=== PATIENT | male | born 1990 | race Caucasian/White ===

== ENCOUNTER 2022-04-19 06:01 | Emergency (ER) | payer SELFPAY | END 2022-04-19 07:35 | disposition home or self-care (01) | LOC: MW.ED 06:01 | DX: F10.10 Alcohol abuse, uncomplicated (principal) | CPT/HCPCS: 99283 ==

== ENCOUNTER 2022-04-19 14:22 | Inpatient (IN) | payer SELFPAY ==
[2022-04-19] MEDS ORDERED: Sodium Chloride 0.9% 1,000 ML IV ONE (16:04)
[2022-04-19] MEDS ORDERED: Thiamine 200 MG/2 ML MDV IVPUSH ONE (16:04)
[2022-04-19] MEDS ORDERED: LORazepam 2 MG/ML SDV IVPUSH ONE ×4 (16:04→21:19)
[2022-04-19] MEDS ORDERED: Folic Acid 1 MG/0.2 ML UD Syringe IV STA (16:04)
[2022-04-19] MEDS ORDERED: LORazepam 2 MG/ML SDV IM ONE (17:19)
[2022-04-19] MEDS ORDERED: Haloperidol Lactate 5 MG/ML SDV IM ONE (17:19)
[2022-04-19] MEDS ORDERED: diphenhydrAMINE 50 MG/ML SDV IM ONE (17:19)
[2022-04-19] MEDS ORDERED: Thiamine 200 MG/2 ML MDV ONE (19:42)
[2022-04-19] MEDS ORDERED: Folic Acid 1 MG/0.2 ML UD Syringe ONE (19:43)
[2022-04-19 19:48] LABS: ACETAMINOPHEN <2.0 ug/mL; BLOOD UREA NITROGEN,BUN 6 mg/dL (7.0-18.0); CARBON DIOXIDE,CO2 27.1 mmol/L (21.0-32.0); CHLORIDE,CL 99 mmol/L (98-107); ESTIMATED GFR 91 mL/min (>60); GLUCOSE RANDOM 115 mg/dL (74-106); POTASSIUM,K 3.3 mmol/L (3.5-5.1); SODIUM,NA 137 mmol/L (136-148)
[2022-04-19] MEDS ORDERED: Magnesium Sulfate/Water 2 GM in Premix Bag 1 BAG IV ONE (20:54)
[2022-04-19] MEDS ORDERED: Ondansetron 4 MG/2 ML SDV ONE (21:20)
[2022-04-19] MEDS: Sodium Chloride 0.9% 1,000 ML IV ONE ×2 (21:35→21:59)
[2022-04-19] MEDS ORDERED: LORazepam 2 MG/ML SDV IVPUSH PRN (22:31)
[2022-04-19] MEDS: Sodium Chloride 0.9% 1,000 ML IV SCH (22:35)
[2022-04-20] MEDS: Sodium Chloride 0.9% 1,000 ML IV SCH ×3 (06:35→23:50)
[2022-04-20 06:41] LABS: CARBON DIOXIDE,CO2 25.9 mmol/L (21.0-32.0); POTASSIUM,K 3.2 mmol/L (3.5-5.1)
[2022-04-20] MEDS ORDERED: Potassium Chloride 20 MEQ Tab.ER PO ONE (07:09)
[2022-04-20] MEDS ORDERED: Ondansetron 4 MG/2 ML SDV IVPUSH PRN (08:05)
[2022-04-20] MEDS: Potassium Chloride 100 ML IV SCH ×2 (08:06→10:20)
[2022-04-20] MEDS: Thiamine 200 MG/2 ML MDV IVPUSH SCH (08:06)
[2022-04-20] MEDS: Folic Acid 1 MG/0.2 ML UD Syringe SUBCUT SCH (08:06)
[2022-04-20] MEDS ORDERED: Pantoprazole 40 MG in Sodium Chloride 0.9% 10 ML IVPUSH ONE (10:05)
[2022-04-20] MEDS ORDERED: Nicotine 14 MG/24 Hr Patch TRDERM ONE (19:39)
[2022-04-21 06:52] LABS: CARBON DIOXIDE,CO2 26.1 mmol/L (21.0-32.0); POTASSIUM,K 3.4 mmol/L (3.5-5.1)
[2022-04-21] MEDS: Sodium Chloride 0.9% 1,000 ML IV SCH (07:38)
[2022-04-21] MEDS: Pantoprazole 40 MG Tab.CR PO SCH (07:38)
[2022-04-21] MEDS: Thiamine 200 MG/2 ML MDV IVPUSH SCH (08:21)
[2022-04-21] MEDS: Folic Acid 1 MG/0.2 ML UD Syringe SUBCUT SCH (08:21)
[2022-04-21] MEDS ORDERED: Potassium Chloride 20 MEQ Tab.ER PO ONE (10:37)
[2022-04-21] MEDS: Nicotine 14 MG/24 Hr Patch TRDERM SCH (18:16)
[2022-04-22 06:20] LABS: CARBON DIOXIDE,CO2 28.1 mmol/L (21.0-32.0); POTASSIUM,K 4.2 mmol/L (3.5-5.1)
[2022-04-22] MEDS: Pantoprazole 40 MG Tab.CR PO SCH (06:43)
[2022-04-22] MEDS: Folic Acid 1 MG/0.2 ML UD Syringe SUBCUT SCH (08:58)
[2022-04-22] MEDS: Thiamine 200 MG/2 ML MDV IVPUSH SCH (08:59)
[2022-04-22] MEDS: Nicotine 14 MG/24 Hr Patch TRDERM SCH (08:59)
== END 2022-04-22 13:32 | disposition home or self-care (01) | DRG 897 ==
LOC: MW.ED 14:22 → MW.ICU 21:28 → MW.MS 04-21 10:10
PROVIDERS: ADMIT Internal Medicine; ATTEND Internal Medicine
DX: F10.931 Alcohol use, unspecified with withdrawal delirium (principal); F10.932 Alcohol use, unspecified with withdrawal with perceptual disturbance; Z20.822 Contact with and (suspected) exposure to COVID-19; E87.6 Hypokalemia; E83.42 Hypomagnesemia; Z87.81 Personal history of (healed) traumatic fracture
CPT/HCPCS: 36415; 70450; 70450-26; 80053; 80143; 80179; 80305-QW; 80307; 81001; 83735; 84100; 84443; 85025; 93005; 93010; 96361; 96365; 96372; 96375; 96376; 99221; 99231; 99238; 99291; 99292; A9270-GY; C9113; J1200; J1630; J2060; J2405; J3360; J3411; J3475; J3480; J3490; J7030; U0002